=== PATIENT | male | born 2000 | race Caucasian/White ===

== ENCOUNTER 2024-07-08 17:21 | Emergency (ER) | payer SELFPAY ==
[~2024-07-08] VITALS: Ht 182.9 cm; Wt 110.0 kg
[2024-07-08 17:39] VITALS: BP 144/93
[2024-07-08 17:45] VITALS: BP 145/70
[2024-07-08] MEDS ORDERED: DOXYCYCLINE100 MG PO (17:59)
[2024-07-08] MEDS ORDERED: CEPHALEXIN500 M1 PO (17:59)
[2024-07-08 18:00] VITALS: BP 145/85
[2024-07-08] MEDS ORDERED: DOXYCYCLINE HYCLATE 100 MG/CAP PO ONE (18:00)
[2024-07-08] MEDS ORDERED: STERILE WATER 10 ML/VIAL SDV IM ONE (18:00)
[2024-07-08] MEDS ORDERED: ceFAZolin Sodium 2 GM/VIAL SDV IM ONE (18:00)
[2024-07-08 18:25] VITALS: BP 145/70
== END 2024-07-08 18:30 | disposition home or self-care (01) | DRG 603 ==
LOC: ED 17:21
DX: L03.116 Cellulitis of left lower limb (principal)
CPT/HCPCS: J0690